=== PATIENT | female | born 1965 | race African-American/Black ===

== ENCOUNTER 2021-04-21 23:40 | Emergency (ER) | payer MEDICAID ==
[~2021-04-21] VITALS: Ht 157.5 cm; Wt 50.0 kg
[2021-04-22] MEDS ORDERED: FENTANYL CITRATE/PF 50MCG/ML 2ML VIAL IV ONE ×2 (00:15→01:45)
[2021-04-22 00:53] LABS: BASOPHILS % 0.5 % (0.0-2.0); EOSINOPHILS % 0.8 % (0.0-5.0); HEMATOCRIT. 35.8 % (36.0-48.0); HEMOGLOBIN. 11.9 g/dL (12.0-16.0); LYMPHOCYTES % 45.7 % (20.0-50.0); MEAN CORPUSCULAR HEMOGLOBIN 32.3 pg (28.0-32.0); MEAN CORPUSCULAR VOLUME 97.5 fL (81.0-99.0); MEAN PLATELET VOLUME 7.5 fl (7.4-10.4); MONOCYTES % 9.4 % (2.0-8.0); NEUTROPHILS % 43.6 % (40.0-76.0); PLATELET 313 x1000/uL (130-400); RED BLOOD CELL COUNT 3.67 mill/uL (4.2-5.4)
[2021-04-22 01:11] LABS: CHLORIDE 110 mEq/L (98-107)
[2021-04-22 03:40] VITALS: BP 144/88
== END 2021-04-22 03:55 | disposition short-term general hospital (02) ==
LOC: ER 23:40
DX: S72.8X1A Other fracture of right femur, initial encounter for closed fracture (principal); M25.48 Effusion, other site; R56.9 Unspecified convulsions; F17.210 Nicotine dependence, cigarettes, uncomplicated; W03.XXXA Other fall on same level due to collision with another person, initial encounter; Y93.41 Activity, dancing; Y92.89 Other specified places as the place of occurrence of the external cause; Y99.9 Unspecified external cause status
CPT/HCPCS: 36415; 71045; 73521; 73551; 73562; 80053; 84484; 85025; 96374; 96376; 99284; J3010

== ENCOUNTER 2023-12-31 14:58 | Emergency (ER) | payer MEDICAID ==
[~2023-12-31] VITALS: Ht 162.6 cm; Wt 50.0 kg
[2023-12-31 15:00] VITALS: BP 130/70; PULSE 100; RESP 18; TEMP 98.2; O2SAT 98
[2023-12-31] MEDS ORDERED: ACET-2708 MT (15:25)
[2023-12-31] MEDS ORDERED: IBUP-1521 MT (18:07)
== END 2024-01-01 01:41 | disposition home or self-care (01) ==
LOC: ER 15:03
DX: M79.642 Pain in left hand (principal); R56.9 Unspecified convulsions; Z59.00 Homelessness unspecified
CPT/HCPCS: 73130; 99283

== ENCOUNTER 2024-01-01 06:24 | Emergency (ER) | payer MEDICAID, OTHER ==
[~2024-01-01] VITALS: Ht 160 cm; Wt 49.0 kg
[~2024-01-01 06:24] MED LIST: ACET-2708 MT; IBUP-1521 MT
[2024-01-01 06:54] VITALS: O2SAT 98
[2024-01-01 07:39] LABS: BASOPHILS % 0.6 % (0.0-2.0); EOSINOPHILS % 0.9 % (0.0-5.0); HEMATOCRIT. 38.9 % (36.0-48.0); HEMOGLOBIN. 12.7 g/dL (12.0-16.0); LYMPHOCYTES % 34.8 % (20.0-50.0); MEAN CORPUSCULAR HEMOGLOBIN 31.6 pg (28.0-32.0); MEAN CORPUSCULAR HGB CONC 32.7 g/dL (31.0-37.0); MEAN CORPUSCULAR VOLUME 96.9 fL (81.0-99.0); MEAN PLATELET VOLUME 7.7 fl (7.4-10.4); NEUTROPHILS % 49.7 % (40.0-76.0); PLATELET 317 x1000/uL (130-400); RED BLOOD CELL COUNT 4.02 mill/uL (4.2-5.4); WHITE BLOOD COUNT 4.7 x1000/uL (4.5-11.0)
[2024-01-01 07:44] LABS: CHLORIDE 110 mEq/L (98-107); POTASSIUM 3.6 mEq/L (3.5-5.1); SODIUM 139 mEq/L (136-145)
[2024-01-01 07:45] LABS: CALCIUM 9.8 mg/dL (8.7-10.4); CARBON DIOXIDE 24 mEq/L (21-32)
[2024-01-01 07:50] LABS: GLUCOSE 103 mg/dL (70-105); UREA NITROGEN BLOOD 18 mg/dL (9-23)
[2024-01-01 07:58] LABS: PHENYTOIN < 2.0 ug/mL (10-20)
[2024-01-01 08:09] LABS: TROPONIN I HIGH SENSITIVITY < 4 ng/L (3.0-34)
[2024-01-01] MEDS: ASPIRIN 81MG TABLET PO SCH (08:34)
[2024-01-01 11:17] LABS: TROPONIN I HIGH SENSITIVITY < 4 ng/L (3.0-34)
[2024-01-01 13:17] LABS: TROPONIN I HIGH SENSITIVITY 4 ng/L (3.0-34)
[2024-01-01 18:44] VITALS: BP 138/75; PULSE 69; RESP 16; TEMP 98
== END 2024-01-01 18:51 | disposition short-term general hospital (02) ==
LOC: ER 06:50 → CANBEDREQ 16:09 → ER 18:51
DX: R07.89 Other chest pain (principal); F14.10 Cocaine abuse, uncomplicated; F17.210 Nicotine dependence, cigarettes, uncomplicated; R41.82 Altered mental status, unspecified
CPT/HCPCS: 80048; 80185; 83880; 85025; 84484; 36415; 71045; 70450; 93005; 99285; Z7610

== ENCOUNTER 2024-01-03 06:37 | Emergency (ER) | payer MEDICAID, OTHER ==
[~2024-01-03] VITALS: Ht 162.6 cm; Wt 56.0 kg
[2024-01-03 06:39] VITALS: BP 110/88; PULSE 72; RESP 18; TEMP 97; O2SAT 99
== END 2024-01-03 08:14 | disposition left against medical advice (07) ==
LOC: ER 06:37
DX: M79.89 Other specified soft tissue disorders (principal); Z53.21 Procedure and treatment not carried out due to patient leaving prior to being seen by health care provider
CPT/HCPCS: 99281

== ENCOUNTER 2024-02-26 19:09 | Emergency (ER) | payer OTHER ==
[~2024-02-26] VITALS: Ht 162.6 cm; Wt 55.0 kg
[2024-02-26 19:12] VITALS: BP 194/90; PULSE 79; RESP 18; TEMP 98.2; O2SAT 99
[2024-02-26] MEDS ORDERED: AMLODIPINE 5MG TABLET PO ONE (20:45)
== END 2024-02-27 00:19 | disposition left against medical advice (07) ==
LOC: ER 19:09
DX: I10 Essential (primary) hypertension (principal); F14.10 Cocaine abuse, uncomplicated; G40.909 Epilepsy, unspecified, not intractable, without status epilepticus; F15.90 Other stimulant use, unspecified, uncomplicated; Z79.899 Other long term (current) drug therapy
CPT/HCPCS: 99283

== ENCOUNTER 2024-03-01 08:27 | Inpatient (IN) | payer OTHER ==
[~2024-03-01] VITALS: Ht 172.7 cm; Wt 56.0 kg
[2024-03-01 08:30] VITALS: O2SAT 99
[2024-03-01 09:23] LABS: HEMATOCRIT 41.8 % (36.0-48.0); HEMOGLOBIN 13.6 g/dL (12.0-16.0); MEAN CORPUSCULAR HEMOGLOBIN 31.7 pg (28.0-32.0); MEAN CORPUSCULAR HGB CONC 32.6 g/dL (31.0-37.0); MEAN CORPUSCULAR VOLUME 97.3 fL (81.0-99.0); PLATELET 281 x1000/uL (130-400); RED BLOOD CELL COUNT 4.29 mill/uL (4.2-5.4); RED CELL DISTRIBUTION WIDTH 14.4 % (11.6-14.6); WHITE BLOOD COUNT 4.3 x1000/uL (4.5-11.0)
[2024-03-01 11:10] LABS: CHLORIDE 108 mEq/L (98-107); POTASSIUM 3.8 mEq/L (3.5-5.1)
[2024-03-01 11:11] LABS: CARBON DIOXIDE 29 mEq/L (21-32); SODIUM 141 mEq/L (136-145)
[2024-03-01 11:12] LABS: CALCIUM 9.3 mg/dL (8.7-10.4)
[2024-03-01 11:16] LABS: CREATININE 0.9 mg/dL (0.6-1.0); GLUCOSE 74 mg/dL (70-105)
[2024-03-01 11:17] LABS: UREA NITROGEN BLOOD 16 mg/dL (9-23)
[2024-03-01 11:18] LABS: ALANINE AMINOTRANSFERASE 15 IU/L (10-49); ASPARTATE AMINOTRANSFERASE 27 IU/L (<34)
[2024-03-01 11:19] LABS: BILIRUBIN TOTAL 0.2 mg/dL (0.1-1.0); PROTEIN TOTAL 6.9 g/dL (6.0-8.3)
[2024-03-01 11:21] LABS: ETHANOL BLOOD < 10 mg/dL (<10)
[2024-03-01 12:34] LABS: INR 0.9; PROTHROMBIN TIME 10.2 sec (9.6-11.0)
[2024-03-01 12:40] LABS: ALANINE AMINOTRANSFERASE 16 IU/L (10-49); ALBUMIN 4.1 g/dL (3.2-4.8); ASPARTATE AMINOTRANSFERASE 29 IU/L (<34); BILIRUBIN TOTAL 0.2 mg/dL (0.1-1.0); PROTEIN TOTAL 6.9 g/dL (6.0-8.3)
[2024-03-01 13:25] LABS: BILIRUBIN DIRECT < 0.1 mg/dL (<=3.0); TROPONIN I HIGH SENSITIVITY < 4 ng/L (3.0-34)
[2024-03-01 14:33] VITALS: BP 154/72; PULSE 59; RESP 16; TEMP 36.66960; O2SAT 98
[2024-03-01] MEDS ORDERED: IPRATROPIUM/ALBUTEROL 0.5-3(2.5)MG/3ML NEB HHN PRN (14:45)
[2024-03-01] MEDS ORDERED: MAGNESIUM/ALUMINUM HYDROXIDE/SIMETHICONE 30ML UDC PO PRN (14:45)
[2024-03-01] MEDS ORDERED: HYDROCODONE/ACETAMINOPHEN 5/325MG TABLET PO PRN (14:45)
[2024-03-01] MEDS ORDERED: DOCUSATE SODIUM 100MG CAPSULE PO PRN (14:45)
[2024-03-01] MEDS ORDERED: ACETAMINOPHEN 325MG TABLET PO PRN ×2 (14:45)
[2024-03-01] MEDS ORDERED: GUAIFENESIN 200MG/10ML SUGAR FREE UDC PO PRN (14:45)
[2024-03-01] MEDS ORDERED: CLONIDINE 0.1MG TABLET PO PRN (14:45)
[2024-03-01 14:57] LABS: CREATINE KINASE 239 IU/L (34-145)
[2024-03-01] MEDS: SODIUM CHLORIDE 0.9% 1,000 ML IV SCH (15:00)
[2024-03-01] MEDS: ENOXAPARIN 40MG/0.4ML SYR SUBCUT SCH (15:00)
[2024-03-01] MEDS: AMLODIPINE 5MG TABLET PO NR (15:40)
[2024-03-01] MEDS ORDERED: LEVETIRACETAM 500MG PREMIX 100 ML IV SCH (21:00)
[2024-03-02] MEDS ORDERED: AMLODIPINE 10MG TABLET PO SCH (09:00)
== END 2024-03-01 15:56 | disposition left against medical advice (07) | DRG 816 ==
LOC: ER 08:27 → 5WST 14:13 → EDBEDREQ 14:17
PROVIDERS: ADMIT Internal Medicine; ATTEND Internal Medicine
DX: T40.5X1A Poisoning by cocaine, accidental (unintentional), initial encounter (principal); F14.10 Cocaine abuse, uncomplicated; I16.9 Hypertensive crisis, unspecified; F17.210 Nicotine dependence, cigarettes, uncomplicated; G40.909 Epilepsy, unspecified, not intractable, without status epilepticus; I10 Essential (primary) hypertension; Z60.2 Problems related to living alone; Z53.29 Procedure and treatment not carried out because of patient's decision for other reasons; Z79.899 Other long term (current) drug therapy
CPT/HCPCS: 36415; 71045; 80053; 80076; 80320; 82550; 82962; 84484; 85027; 93005; 99285; G0480